=== PATIENT | male | born 1965 | race Caucasian/White ===

== ENCOUNTER 2025-04-25 08:21 | Outpatient (CLI) | payer OTHER ==
--- NOTE | 2025-04-25 09:56 | RADIOLOGY REPORT ---
PROCEDURE: MR MRI LUMBAR SPINE INDICATION: STRAIN OF MUSCLE, FASCIA AND TENDON OF LOWER BACK, COMPARISON: None TECHNIQUE: Multiplanar multisequence images of the the lumbar spine are obtained. FINDINGS: For the purpose of this examination, there are 5 lumbar vertebral body types counting from the lumbosacral junction. The lumbar vertebral body heights are maintained. Severe multilevel disc space narrowing and desiccation with associated degenerative edematous endplate changes. 9 mm anterolisthesis of L4 upon L5. Mild lumbar levocurvature. Conus terminates at the L1 level. T12-L1: 3 mm disc protrusion. Lgnq-nc-zvhplyzh facet and flavum hypertrophy. No spinal canal stenosis. Moderate bilateral neural foraminal stenosis, nidec-dntzkhd-stzf-left. L1-2: 6 mm disc protrusion. Moderate facet and flavum hypertrophy. Thecal sac measures 8 mm AP. Bmpe-xr-nkujdgxp spinal canal stenosis. Severe bilateral neural foraminal stenosis, aqysa-cgexcrh-oqlf-left. L2-3: 4 mm disc protrusion. Moderate facet and flavum hypertrophy. Thecal sac measures 9 mm AP. Mild spinal canal stenosis. Severe bilateral neural foraminal stenosis. L3-4: 4 mm disc protrusion. Moderate to severe facet and flavum hypertrophy. Thecal sac measures 7 mm AP. Moderate spinal canal stenosis. Severe bilateral neural foraminal stenosis. L4-5: 4 mm central disc protrusion. 9 mm anterolisthesis L4 upon L5. Thecal sac measures 6 mm AP. Moderate to severe spinal canal stenosis. Severe bilateral neural foraminal stenosis. L5-S1: 2 mm disc protrusion. Moderate facet and flavum hypertrophy. Thecal sac measures 10 mm AP. No spinal canal stenosis. Moderate to severe bilateral neural foraminal stenosis. Infrarenal abdominal aortic aneurysmal dilatation to 2.4 cm. IMPRESSION: Severe lumbar degenerative disc disease. 9 mm anterolisthesis L4 upon L5. Moderate to severe spinal canal stenosis L4-5. Moderate spinal canal stenosis L3-4. Frkf-hd-pjxcctrb spinal canal stenosis at L1-2. Mild spinal canal stenosis L2-3. Moderate to severe multilevel neural foraminal stenosis as described. Aneurysmal dilatation infrarenal abdominal aorta to 2.4 cm.
== END 2025-04-25 23:59 | disposition home or self-care (01) ==
LOC: MRI02 08:21
PROVIDERS: ATTEND Student in an Organized Health Care Education/Training Program
DX: S39.012A Strain of muscle, fascia and tendon of lower back, initial encounter (principal); M43.16 Spondylolisthesis, lumbar region; M51.26 Other intervertebral disc displacement, lumbar region; M48.061 Spinal stenosis, lumbar region without neurogenic claudication; M43.8X6 Other specified deforming dorsopathies, lumbar region; X58.XXXA Exposure to other specified factors, initial encounter; Y93.89 Activity, other specified; Y92.89 Other specified places as the place of occurrence of the external cause; Y99.8 Other external cause status
CPT/HCPCS: 72148